=== PATIENT | male | born 1995 ===

== ENCOUNTER 2017-11-18 16:32 | Emergency (ER) | payer BC ==
[2017-11-18 19:10] VITALS: BP 137/89
--- NOTE | 2017-11-18 20:25 | RAD ---
INDICATION: Cough. COMPARISON: There are no prior studies available for comparison. TECHNIQUE: Dual-energy PA and lateral views of the chest were obtained. FINDINGS: The heart is within normal limits in size. Mediastinal and hilar contours appear within normal limits. The lungs are clear. No pleural effusion is present. IMPRESSION: NO EVIDENCE FOR ACTIVE CARDIOPULMONARY DISEASE.
--- NOTE | 2017-11-19 22:19 | UC ---
Mary Dixon Gabriel, scribed for Teddy Macdonald MD on 11/18/17 at 1921 . Throat Pain/Nasal Douglas HPI - HPI Summary HPI Summary: This patient is a 22 year old M presenting [place] [facility] [place] chief complaint of sore throat since 11-15-17. The patient rates the pain 4/10 in severity. Patient reports chills, DARLING, cough, and rhinorrhea. - History of Current Complaint Chief Complaint: UCRespiratory Stated Complaint: SORE THROAT, AND COUGH Time Seen by Provider: 11/18/17 19:11 Hx Obtained From: Patient Onset/Duration: Still Present Severity: Moderate Pain Intensity: 3 Pain Scale Used: 0-10 Numeric Cough: Nonproductive Associated Signs & Symptoms: Positive: Other - chills, DARLING, cough, and rhinorrhea. - Allergies/Home Medications Allergies/Adverse Reactions: Allergies Allergy/AdvReac Type Severity Reaction Status Date / Time No Known Allergies Allergy Verified 11/18/17 17:52 Home Medications: Home Medications Ibuprofen TAB* [Motrin TAB* 400 MG] 400 mg PO TID 11/18/17 [History Confirmed ] PMH/Surg Hx/FS Hx/Imm Hx Previously Healthy: Yes Other History Of: Negative For: Hepatitis B - Surgical History Surgical History: None - Family History Known Family History: Negative: Hypertension, Diabetes, Renal Disease, Respiratory Disease, Seizure Disorder - Social History Alcohol Use: Occasionally Substance Use Type: None Smoking Status (MU): Never Smoked Tobacco Review of Systems Constitutional: Chills ENT: Sore Throat, Nasal Discharge Respiratory: Cough Neurological: Headache All Other Systems Reviewed And Are Negative: Yes Physical Exam Triage Information Reviewed: Yes Vital Signs: Initial Vital Signs Temp 97.9 F 11/18/17 17:49 Pulse 69 11/18/17 17:49 Resp 18 11/18/17 17:49 BP 143/95 11/18/17 17:49 Pulse Ox 99 11/18/17 17:49 - Additional Comments VITAL SIGNS: Reviewed. GENERAL: Patient is a well developed and nourished M who is lying comfortable in the stretcher. Patient is not in any acute respiratory distress. HEAD AND FACE: Normocephalic EYES: PERRLA, EOMI x 2. EARS: Hearing grossly intact. MOUTH: Posterior pharynx erythema NECK: Supple, trachea is midline, no adenopathy, no JVD, no carotid bruit. CHEST: Symmetric, no tenderness at palpation LUNGS: Clear to auscultation bilaterally. No wheezing or crackles. CVS: Regular rate and rhythm, S1 and S2 present, no murmurs or gallops appreciated. ABDOMEN: Soft, non-tender. Bowel sounds are normal. No abdominal abnormal pulsations. EXTREMITIES: Full ROM in all major joints, no edema, no cyanosis or clubbing. NEURO: Alert and oriented x 3. No acute neurological deficits. Speech is normal and follows commands. SKIN: Dry and warm Diagnostics - Radiology CXR Radiology Interpretation Completed By: Radiologist - NO EVIDENCE FOR ACTIVE CARDIOPULMONARY DISEASE. Dr. Macdonald had reviewed this report. Throat Pain/Nasal Course/Dx - Course Assessment/Plan: This patient is a 22 year old M presenting to [facility] [place] with a chief complaint of sore throat since 11-15-17. The patient rates the pain 4/10 in severity. Patient reports chills, DARLING, cough, and rhinorrhea. CXR reveals NO EVIDENCE FOR ACTIVE CARDIOPULMONARY DISEASE. Patient had a negative influenza A and B as well as a negative strep test. I discussed all the findings and test results with the patient. Pt was instructed to return to the urgent care or go to ER immediately if any of the symptoms return or worsens. Plan of care was discussed with the patient and pt understands and agrees. All questions were answered to patient satisfaction. There were no further complaints or concerns. . Patient prefers to take Tylenol and ibuprofen for his fever and would not like any prescriptions. Patient will be diagnosed with URI, discharged and follow up from PCP. The patient is agreeable with this plan. - Differential Dx/Diagnosis Provider Diagnoses: URI Discharge - Discharge Plan Condition: Stable Disposition: HOME Patient Education Materials: Upper Respiratory Infection (DC) Referrals: [facility] [place] [facility] [Outside] No Primary Care Phys,NOPCP [Primary Care Provider] - Additional Instructions: Tylenol or Ibuprofen for fever or body aches The documentation as recorded by the Mary alonso Gabriel accurately reflects the service I personally performed and the decisions made by , Teddy Macdonald MD.
== END 2017-11-18 20:55 | disposition home or self-care (01) ==
LOC: UCEAST 16:32
DX: J06.9 Acute upper respiratory infection, unspecified (principal)
CPT/HCPCS: 36415; 71046; 86308; 87502; 87651; 99201; G0463